=== PATIENT | female | born 1965 | race Caucasian/White ===

== ENCOUNTER → 2016-04-19 | Outpatient (CLI) | payer OTHER ==
[2016-04-19 13:02] LABS: ALBUMIN 4.3 g/dL (3.5-5.0); BILIRUBIN,TOTAL 0.6 mg/dL (0.2-1.3)
== END ==
LOC: OD 11:17
PROVIDERS: ATTEND Radiology Radiation Oncology
DX: C50.211 Malignant neoplasm of upper-inner quadrant of right female breast (principal); Z17.1 Estrogen receptor negative status [ER-]
CPT/HCPCS: 36415; 80076

== ENCOUNTER → 2016-06-25 | Outpatient (CLI) | payer OTHER | LOC: WI 11:03 | PROVIDERS: ATTEND Radiology Radiation Oncology | DX: C50.211 Malignant neoplasm of upper-inner quadrant of right female breast (principal); Z17.1 Estrogen receptor negative status [ER-] | CPT/HCPCS: G0279; G0204; 77062; 77066 ==

== ENCOUNTER 2016-08-03 15:30 | Observation (INO) | payer OTHER ==
[2016-08-03] MEDS ORDERED: METOCLOPRAMIDE HCL ORAL SOLN 10 MG/10 ML UDCUP PO ONE (17:19)
[2016-08-03] MEDS ORDERED: MAG HYDROX/AL HYDROX/SIMETH SUSP 30 ML UDCUP PO ONE (17:19)
[2016-08-03] MEDS ORDERED: LIDOCAINE 2% VISCOUS SOLN 20 ML UDCUP PO ONE (17:19)
--- NOTE | 2016-08-03 17:19 | ER Document Report ---
ED Medical Screen (RME) - General Chief Complaint: Dizziness Stated Complaint: FALL,HEAD PAIN Time Seen by Provider: 08/03/16 17:07 Mode of Arrival: Ambulatory Information source: Patient Notes: 52-year-old female with a history of breast cancer status post right mastectomy , radiation therapy and chemotherapy. The patient also has a history of migraines and elevated LFTs secondary to the chemotherapy. Patient states she recently traveled by plane to and back from [place]. She returned yesterday morning. Yesterday in the afternoon she was ambulating to the kitchen and she had an unheralded syncopal episode. Patient states she did hit her head and had some pain on the side of the neck and the back of the head. She reports that she had a second episode shortly thereafter. She reports that her states that her "heart rate was crazy fast" at the time. She presents with a headache after the event. TRAVEL OUTSIDE OF THE [place] IN LAST 30 DAYS: No - Related Data Allergies/Adverse Reactions: acetaminophen [From Percocet] Allergy (Verified 08/03/16 17:00) breathing difficulty hydrocodone [From Vicodin] Allergy (Verified 08/03/16 17:00) breathing difficulty oxycodone [From Percocet] Allergy (Verified 08/03/16 17:00) breathing difficulty Past Medical History - Social History Family history: CAD, CVA, DM, Hyperlipidemia, Hypertension, Malignancy Pulmonary Medical History: Reports: Hx Bronchitis Neurological Medical History: Reports: Hx Migraine Renal/ Medical History: Reports: Hx Ovarian Cysts. Denies: Hx Peritoneal Dialysis GI Medical History: Reports: Hx Irritable Bowel Musculoskeltal Medical History: Reports Hx Musculoskeletal Deformity, Reports Hx Musculoskeletal Trauma Psychiatric Medical History: Reports: Hx Anxiety Past Surgical History: Reports: Hx Appendectomy, Hx Cholecystectomy, Hx Hysterectomy, Hx Orthopedic Surgery - back, Hx Tubal Ligation, Hx Urinary Tract Surgery - bladder surger - Immunizations Immunizations up to date: Yes Hx Diphtheria, Pertussis, Tetanus Vaccination: Yes Physical Exam - Vital signs Vitals: Temp Pulse Resp BP Pulse Ox 98.7 F 97 16 136/82 H 98 08/03/16 15:45 08/03/16 15:45 08/03/16 15:45 08/03/16 15:45 08/03/16 15:45 Course - Vital Signs Vital signs: Temp Pulse Resp BP Pulse Ox 98.7 F 97 16 136/82 H 98 08/03/16 15:45 08/03/16 15:45 08/03/16 15:45 08/03/16 15:45 08/03/16 15:45
[2016-08-03 17:52] LABS: ABSOLUTE BASOPHILS # (AUTO) 0.1 10^3/uL (0.0-0.2); ABSOLUTE EOSINOPHILS # (AUTO) 0.3 10^3/uL (0.0-0.6); ABSOLUTE LYMPHOCYTES (AUTO) 2.3 10^3/uL (0.5-4.7); ABSOLUTE MONOCYTES (AUTO) 0.5 10^3/uL (0.1-1.4); ABSOLUTE NEUT (AUTO) 6.3 10^3/uL (1.7-8.2); BASOPHILS % (AUTO) 1.1 % (0-2); HEMATOCRIT 46.8 % (36.0-47.0); HEMOGLOBIN 15.6 g/dL (12.0-15.5); LYMPHOCYTES % (AUTO) 23.9 % (13-45); MEAN CORPUSCULAR HEMOGLOBIN 30.9 pg (27.0-33.4); MEAN CORPUSCULAR HGB CONC 33.4 g/dL (32.0-36.0); MEAN CORPUSCULAR VOLUME 92 fl (80-97); RED BLOOD COUNT 5.06 10^6/uL (3.72-5.28); RED CELL DISTRIBUTION WIDTH 13.2 % (11.5-14.0); WHITE BLOOD COUNT 9.4 10^3/uL (4.0-10.5)
[2016-08-03 17:58] LABS: PROTHROMBIN TIME 13.4 SEC (11.4-15.4)
[2016-08-03] MEDS ORDERED: ONDANSETRON 4 MG TAB.RAPDIS PO ONE (18:00)
[2016-08-03 18:14] LABS: ALANINE AMINOTRANSFERASE 31 U/L (9-52); ALBUMIN 4.6 g/dL (3.5-5.0); ALKALINE PHOSPHATASE 107 U/L (38-126); ANION GAP 14 (5-19); ASPARTATE AMINO TRANSFERASE 32 U/L (14-36); BILIRUBIN,DIRECT 0.4 mg/dL (0.0-0.4); BILIRUBIN,TOTAL 0.8 mg/dL (0.2-1.3); BLOOD UREA NITROGEN 8 mg/dL (7-20); CALCIUM 10.4 mg/dL (8.4-10.2); CARBON DIOXIDE 29 mmol/L (22-30); CHLORIDE 103 mmol/L (98-107); CREATINE KINASE 150 U/L (30-135); CREATININE RESULT 0.79 mg/dL (0.52-1.25); GLUCOSE 95 mg/dL (75-110); POTASSIUM 3.4 mmol/L (3.6-5.0); SODIUM 145.6 mmol/L (137-145)
[2016-08-03 18:25] LABS: CREATINE KINASE MB 0.77 ng/mL (<4.55)
[2016-08-03 18:27] LABS: TROPONIN I < 0.012 ng/mL
[2016-08-03] MEDS ORDERED: NORMAL SALINE 1000 ML 1,000 ML IV ONE ×2 (20:03→21:09)
--- NOTE | 2016-08-03 20:07 | ER Document Report ---
ED General - General Chief Complaint: Dizziness Stated Complaint: FALL,HEAD PAIN Time Seen by Provider: 08/03/16 17:07 Mode of Arrival: Ambulatory Notes: Patient is a 50-year-old female with past history of breast cancer status post right mastectomy currently on oral chemotherapy only who presents after having 2 episodes of syncope. Patient states that last evening she was in the kitchen and without any additional preceding symptoms she had a syncopal event. States that she fell down and hit her head and neck. States her got her up and sat her on the couch where again apparently she syncopized without any preceding symptoms. She has not had any additional syncopal episodes since that time. She presents with concerns of a constant, throbbing, aching pain to her left posterior scalp and neck. Nothing improves or worsens or symptoms. She denies any prior history of syncope without prodromal symptoms. No history of DVT or pulmonary embolus. She denies any chest pain or shortness of breath. TRAVEL OUTSIDE OF THE [place] IN LAST 30 DAYS: No - Related Data Allergies/Adverse Reactions: acetaminophen [From Percocet] Allergy (Verified 08/03/16 17:00) breathing difficulty hydrocodone [From Vicodin] Allergy (Verified 08/03/16 17:00) breathing difficulty oxycodone [From Percocet] Allergy (Verified 08/03/16 17:00) breathing difficulty Past Medical History - General Information source: Patient - Social History Smoking Status: Current Every Day Smoker Chew tobacco use (# tins/day): No Frequency of alcohol use: None Drug Abuse: None Lives with: Spouse/Significant other Family History: Reviewed & Not Pertinent Patient has suicidal ideation: No Patient has homicidal ideation: No Pulmonary Medical History: Reports: Hx Bronchitis Neurological Medical History: Reports: Hx Migraine Renal/ Medical History: Reports: Hx Ovarian Cysts. Denies: Hx Peritoneal Dialysis GI Medical History: Reports: Hx Irritable Bowel Musculoskeltal Medical History: Reports Hx Musculoskeletal Deformity, Reports Hx Musculoskeletal Trauma Psychiatric Medical History: Reports: Hx Anxiety Past Surgical History: Reports: Hx Appendectomy, Hx Cholecystectomy, Hx Hysterectomy, Hx Orthopedic Surgery - back, Hx Tubal Ligation, Hx Urinary Tract Surgery - bladder surger - Immunizations Immunizations up to date: Yes Hx Diphtheria, Pertussis, Tetanus Vaccination: Yes Review of Systems - Review of Systems Notes: Constitutional: Negative for fever. HENT: Negative for sore throat. Eyes: Negative for visual changes. Cardiovascular: Negative for chest pain. Respiratory: Negative for shortness of breath. Gastrointestinal: Negative for abdominal pain, vomiting or diarrhea. Genitourinary: Negative for dysuria. Musculoskeletal: Negative for back pain. Skin: Negative for rash. Neurological: Positive for headache, negative for weakness or numbness 10 point ROS negative except as marked above and in HPI. Physical Exam - Vital signs Vitals: Temp Pulse Resp BP Pulse Ox 98.7 F 97 16 136/82 H 98 08/03/16 15:45 08/03/16 15:45 08/03/16 15:45 08/03/16 15:45 08/03/16 15:45 Interpretation: Normal Notes: PHYSICAL EXAMINATION: GENERAL: Well-appearing, well-nourished and in no acute distress. HEAD: Atraumatic, normocephalic. EYES: Pupils equal round and reactive to light, extraocular movements intact, sclera anicteric, conjunctiva are normal. ENT: nares patent, oropharynx clear without exudates. Moist mucous membranes. NECK: Normal range of motion, supple without lymphadenopathy LUNGS: Breath sounds clear to auscultation bilaterally and equal. No wheezes rales or rhonchi. HEART: Regular rate and rhythm without murmurs ABDOMEN: Soft, nontender, normoactive bowel sounds. No guarding, no rebound. No masses appreciated. EXTREMITIES: Normal range of motion, no pitting or edema. No cyanosis. NEUROLOGICAL: No focal neurological deficits. Moves all extremities spontaneously and on command. PSYCH: Normal mood, normal affect. SKIN: Warm, Dry, normal turgor, no rashes or lesions noted. Course - Re-evaluation Re-evalutation: 08/03/16 20:04 Patient is a 50-year-old female with past medical history of breast cancer status post mastectomy who presents after 2 syncopal episodes without preceding symptoms yesterday. She presents with an ongoing headache since that time after striking her head during the first episode of syncope. Exact etiology of patient's syncope is unclear although absence of preceding symptoms is somewhat worrisome for a tachydysrhythmia. Patient normotensive, alert, without focal neurologic deficits at time of arrival. Denies syncope was during exertion. No preceding symptoms of palpitations, chest pain, or shortness of breath. Patient asymptomatic at time of arrival. EKG is without evidence of HCOM, right heart strain, ST changes to suggest ischemia, prolong QTc, delta wave, epsilon wave, or Brugada syndrome. Patient denies any family history of sudden cardiac , personal history of of structural heart disease. Patient denies any symptoms to suggest an acute PE, GA, TAD, SAH, seizure, or acute GI bleed as the etiology of their syncope today. On exam, no murmurs to suggest critical aortic stenosis as possible etiology. A CT the head and cervical spine were obtained in triage due to her hitting her head and neck during her first syncopal episode yesterday and noted to be normal. Her labs are otherwise unremarkable. I did discuss with this patient admission to the hospital given the somewhat concerning nature of her episode of syncope. We discussed that she would be admitted for telemetry monitoring and consideration of cardiac echocardiogram and possible stress testing. Alternative of discharge home with an outpatient echocardiogram and stress test was also discussed with the patient the risks and benefits of each of these approaches were discussed at length and patient states she would like to speak with her prior to making a decision about being admitted to the hospital. She has capacity to make her decision and has verbalized clear understanding of the risks and benefits of each approach. 08/03/16 21:04 Patient is agreed to admission at this time. She remains asymptomatic. I discussed with Dr. Ballesteros will admit the patient - Vital Signs Vital signs: Temp Pulse Resp BP Pulse Ox 98.7 F 97 16 98/71 L 96 08/03/16 15:45 08/03/16 15:45 08/03/16 15:45 08/03/16 23:00 08/03/16 23:01 - Laboratory Result Diagrams: 08/03/16 17:40 08/03/16 17:40 Laboratory results interpreted by me: 08/03/16 08/03/16 08/03/16 17:40 17:40 17:40 Hgb 15.6 H D-Dimer 0.58 H Sodium 145.6 H Potassium 3.4 L Calcium 10.4 H Creatine Kinase 150 H - Diagnostic Test Radiology reviewed: Reports reviewed - EKG Interpretation by Me Additional EKG results interpreted by me: 08/03/16 20:06 Normal sinus rhythm. Rate 77. No ST elevations or depressions. QTC is 426 Discharge - Discharge Clinical Impression: Syncope Qualifiers: Syncope type: unspecified Qualified Code(s): R55 - Syncope and collapse Admitting Provider: [facility] Admitted: Telemetry
[2016-08-03] MEDS ORDERED: MAGNESIUM HYDROXIDE SUSP 30 ML UDCUP PO PRN (21:06)
[2016-08-03] MEDS ORDERED: ACETAMINOPHEN 325 MG TABLET PO PRN (21:06)
[2016-08-03] MEDS ORDERED: KETOROLAC TROMETHAMINE INJ/PF 30 MG/1 ML SDV IV ONE (21:09)
--- NOTE | 2016-08-03 22:03 | EKG REPORT ---
SEVERITY:- NORMAL ECG - SINUS RHYTHM : Confirmed by: Suzi Sanchez 03-Aug-2016 22:01:49
[2016-08-03] MEDS: HEPARIN SOD (PORCINE) 5,000 UNIT/ML 1 ML SYRINGE SUBCUT SCH (22:43)
[2016-08-04] MEDS ORDERED: ALPRAZOLAM PO PRN (00:12)
[2016-08-04] MEDS ORDERED: HYDROMORPHONE HCL 2 MG TABLET PO PRN (00:13)
[2016-08-04 03:51] LABS: ANION GAP 5 (5-19); BLOOD UREA NITROGEN 12 mg/dL (7-20); CALCIUM 9.3 mg/dL (8.4-10.2); CARBON DIOXIDE 30 mmol/L (22-30); CHLORIDE 107 mmol/L (98-107); CREATINE KINASE 105 U/L (30-135); CREATININE RESULT 1.02 mg/dL (0.52-1.25); GLUCOSE 93 mg/dL (75-110); POTASSIUM 3.2 mmol/L (3.6-5.0); SODIUM 141.8 mmol/L (137-145)
[2016-08-04 04:02] LABS: CREATINE KINASE MB 0.58 ng/mL (<4.55)
[2016-08-04 04:09] LABS: TROPONIN I < 0.012 ng/mL
[2016-08-04] MEDS: HEPARIN SOD (PORCINE) 5,000 UNIT/ML 1 ML SYRINGE SUBCUT SCH ×2 (06:38→13:19)
[2016-08-04] MEDS ORDERED: POTASSIUM CHLORIDE 10 MEQ TABLET.SA PO ONE ×2 (07:24→07:45)
[2016-08-04 08:37] LABS: HEMATOCRIT 40.5 % (36.0-47.0); HGB HCT DIFFERENCE -0.6; MEAN CORPUSCULAR HEMOGLOBIN 30.5 pg (27.0-33.4); MEAN CORPUSCULAR HGB CONC 32.9 g/dL (32.0-36.0); MEAN CORPUSCULAR VOLUME 93 fl (80-97); RED BLOOD COUNT 4.36 10^6/uL (3.72-5.28); RED CELL DISTRIBUTION WIDTH 13.2 % (11.5-14.0); WHITE BLOOD COUNT 8.2 10^3/uL (4.0-10.5)
[2016-08-04 09:21] LABS: HEMOGLOBIN 13.3 g/dL (12.0-15.5)
[2016-08-04 09:24] LABS: BAND NEUTROPHILS % (MANUAL) 1 % (3-5); BASOPHILS % (MANUAL) 2 % (0-2); EOSINOPHILS % (MANUAL) 3 % (0-6); LYMPHOCYTES % (MANUAL) 33 % (13-45); PLATELET CLUMPS PRESENT; RBC MORPHOLOGY COMMENT NORMO-CYTIC/CHROMIC; TOTAL CELLS COUNTED 100; TOXIC GRANULATION SLIGHT
[2016-08-04] MEDS ORDERED: DOCUSATE SODIUM 100 MG CAPSULE PO SCH (10:00)
--- NOTE | 2016-08-04 10:26 | PDOC H&P ---
History of Present Illness Admission Date/PCP: 08/03/16 21:06 MARLA SQUIRES MD Patient complains of: Syncope History of Present Illness: KIARA KHAN is a 50 year old female with a past medical history of chronic pain, migraine, irritable bowel syndrome, breast cancer, tobacco, anxiety, depression and ADHD. She been in her usual state of health until approximately 24 hours prior to presentation sustaining an unwitnessed fall for which she does not recollect prior symptoms. She denies previous episode, palpitations, chest pain, limb injuries or incontinence. She subsequently complained of left- sided headache which is dull in nature. She currently complains of pain all over, nausea and constipation. She Denies shortness of breath. In the emergency room she presents with normal-tension but is currently hypotensive without tachycardia, she asks to take her home medications from her purse of Dilaudid and Xanax. Workup was otherwise unremarkable she's referred to the hospitalist for evaluation. Past Medical History Pulmonary Medical History: Reports: Bronchitis Neurological Medical History: Reports: Migraine GI Medical History: Reports: Other - Constipation to predominant irritable bowel Musculoskeltal Medical History: Reports: Other - Narcotic dependent chronic pain Psychiatric Medical History: Reports: Attention Deficit Hyperactivity Disorder, Depression, General Anxiety Disorder, Tobacco Dependency Past Surgical History Past Surgical History: Reports: Appendectomy, Cholecystectomy, Hysterectomy, Orthopedic Surgery - back, Tubal Ligation Social History Information Source: Patient Lives with: Family Smoking Status: Current Every Day Smoker Cigarettes Packs Per Day: 1 Frequency of Alcohol Use: None - Advance Directive Resuscitation Status: Full Code Family History Family History: CAD, Hypertension Parental Family History Reviewed: Yes Children Family History Reviewed: Yes Sibling(s) Family History Reviewed.: Yes Medication/Allergy Home Medications: Alprazolam [Xanax] 1 mg PO TIDP PRN 08/04/16 Docusate Sodium [Colace 100 mg Capsule] 100 mg PO BID #60 capsule 08/04/16 Eletriptan HBr [Relpax] 40 mg PO ONCE PRN 08/04/16 Hydromorphone HCl [Dilaudid 2 mg Tablet] 2 mg PO QID 08/04/16 Letrozole [Femara 2.5 mg Tablet] 2.5 mg PO DAILY 08/04/16 Lidocaine [Lidoderm 5% (700 mg) Transdermal Patch] 1 patch TOP Q12 PRN 08/04/16 Sennosides [Senna Laxative] 2 tab PO QHS #60 tablet 08/04/16 Allergies/Adverse Reactions: acetaminophen [From Percocet] Allergy (Verified 08/03/16 17:00) breathing difficulty hydrocodone [From Vicodin] Allergy (Verified 08/03/16 17:00) breathing difficulty oxycodone [From Percocet] Allergy (Verified 08/03/16 17:00) breathing difficulty Review of Systems ROS unobtainable: Other - History felt unreliable as she answers vaguely but affirmative to all questions with poor eye contact, difficulty with concentration and slurred speech. Physical Exam Vital Signs: Temp Pulse Resp BP Pulse Ox 98.7 F 97 16 98/71 L 96 08/03/16 15:45 08/03/16 15:45 08/03/16 15:45 08/03/16 23:00 08/03/16 23:01 General appearance: PRESENT: no acute distress, well-developed, well-nourished Head exam: PRESENT: atraumatic, normocephalic Eye exam: PRESENT: conjunctiva pink, EOMI, PERRLA. ABSENT: scleral icterus Ear exam: PRESENT: normal external ear exam Mouth exam: PRESENT: moist, tongue midline Neck exam: ABSENT: carotid bruit, JVD, lymphadenopathy, thyromegaly Respiratory exam: PRESENT: clear to auscultation liss. ABSENT: rales, rhonchi, wheezes Cardiovascular exam: PRESENT: RRR. ABSENT: diastolic murmur, rubs, systolic murmur Pulses: PRESENT: normal dorsalis pedis pul Vascular exam: PRESENT: normal capillary refill GI/Abdominal exam: PRESENT: normal bowel sounds, soft. ABSENT: distended, guarding, mass, organolmegaly, rebound, tenderness Rectal exam: PRESENT: deferred Extremities exam: PRESENT: full ROM. ABSENT: calf tenderness, clubbing, pedal edema Neurological exam: PRESENT: alert, awake, oriented to person, oriented to place , oriented to time, oriented to situation, CN II-XII grossly intact. ABSENT: motor sensory deficit Psychiatric exam: PRESENT: appropriate affect, normal mood. ABSENT: homicidal ideation, suicidal ideation Skin exam: PRESENT: dry, intact, warm. ABSENT: cyanosis, rash Results Laboratory Results: 0508/03/16 08/03/16 21:25 21:25 21:25 Creatine Kinase 135 CK-MB (CK-2) 0.70 Troponin I Cancelled < 0.012 Impressions: Cervical Spine CT 08/03/16 17:17 IMPRESSION: Degenerative changes without evidence for fracture Head CT 08/03/16 17:17 IMPRESSION: NORMAL BRAIN CT WITHOUT CONTRAST. Assessment & Plan - Diagnosis (1) Syncope Qualifiers: Syncope type: unspecified Qualified Code(s): R55 - Syncope and collapse Is this a current diagnosis for this admission?: YesPlan: Complicated by dehydration, benzodiazepine and narcotics. Patient initially orthostatic improved with IV fluids and reduction of Xanax and Dilaudid. Continue cardiac monitoring (2) Breast cancer Plan: Increased risk for pulmonary emboli, given his history and tobacco will obtain d -dimer and consider CTA chest (3) Chronic pain Is this a current diagnosis for this admission?: YesPlan: Complicating balance and likely contributing factor to both complaint of constipation and dizziness. Dose reduction of Dilaudid as inpatient with follow -up with pain management. (4) Anxiety Is this a current diagnosis for this admission?: YesPlan: Compcare in presentation with dizziness suggest reduction in Xanax dose and frequency with outpatient follow-up with mental health (5) Orthostasis Is this a current diagnosis for this admission?: YesPlan: IV fluid challenge orthostatic blood pressure evaluation every 4 hours, reduction and Dilaudid and Xanax dosing - Time Time Spent: 30 to 50 Minutes
[2016-08-04 10:44] LABS: ANION GAP 9 (5-19); BLOOD UREA NITROGEN 15 mg/dL (7-20); CALCIUM 9.7 mg/dL (8.4-10.2); CARBON DIOXIDE 26 mmol/L (22-30); CHLORIDE 106 mmol/L (98-107); CREATINE KINASE 105 U/L (30-135); CREATININE RESULT 0.86 mg/dL (0.52-1.25); GLUCOSE 109 mg/dL (75-110); POTASSIUM 3.6 mmol/L (3.6-5.0); SODIUM 140.8 mmol/L (137-145)
[2016-08-04 10:56] LABS: CREATINE KINASE MB 0.66 ng/mL (<4.55)
[2016-08-04] MEDS ORDERED: ELETRIPTAN HBR 40 MG PO PRN (10:59)
[2016-08-04] MEDS ORDERED: LIDOCAINE 5% (700 MG) TRANSDERMAL ADH..PATCH TOP PRN (10:59)
[2016-08-04] MEDS ORDERED: NORMAL SALINE 1000 ML 2,000 ML IV ONE (10:59)
[2016-08-04 11:00] LABS: TROPONIN I < 0.012 ng/mL
[2016-08-04] MEDS ORDERED: ALPRAZOLAM 0.5 MG TABLET PO PRN (11:19)
[2016-08-04] MEDS ORDERED: LETROZOLE 2.5 MG TABLET PO ONE (12:00)
[2016-08-04] MEDS ORDERED: HYDROMORPHONE HCL 2 MG TABLET PO SCH (12:00)
[2016-08-04 12:20] VITALS: BP 136/57
--- NOTE | 2016-08-04 18:32 | PDOC DISCHARGE SUMMARY ---
General - Admit/Disc Date/PCP Admission Date/Primary Care Provider: 08/03/16 21:06 MARLA SQUIRES MD Discharge Date: 08/04/16 - Discharge Diagnosis (1) Breast cancer Is this a current diagnosis for this admission?: Yes (2) Chronic pain Is this a current diagnosis for this admission?: Yes (3) Anxiety Is this a current diagnosis for this admission?: Yes (4) Orthostasis Is this a current diagnosis for this admission?: Yes (5) Syncope Is this a current diagnosis for this admission?: Yes (6) Tobacco abuse Is this a current diagnosis for this admission?: Yes - Additional Information Resuscitation Status: Full Code Discharge Diet: Regular, Other (Comments) - increase fiber and water Discharge Activity: Activity As Tolerated Home Medications: Alprazolam [Xanax] 1 mg PO TIDP PRN 08/04/16 Docusate Sodium [Colace 100 mg Capsule] 100 mg PO BID #60 capsule 08/04/16 Eletriptan HBr [Relpax] 40 mg PO ONCE PRN 08/04/16 Hydromorphone HCl [Dilaudid 2 mg Tablet] 2 mg PO QID 08/04/16 Letrozole [Femara 2.5 mg Tablet] 2.5 mg PO DAILY 08/04/16 Lidocaine [Lidoderm 5% (700 mg) Transdermal Patch] 1 patch TOP Q12 PRN 08/04/16 Sennosides [Senna Laxative] 2 tab PO QHS #60 tablet 08/04/16 History of Present Illness History of Present Illness: KIARA KHAN is a 50 year old female with a past medical history of chronic pain, migraine, irritable bowel syndrome, breast cancer, tobacco, anxiety, depression and ADHD. She been in her usual state of health until approximately 24 hours prior to presentation sustaining an unwitnessed fall for which she does not recollect prior symptoms. She denies previous episode, palpitations, chest pain, limb injuries or incontinence. She subsequently complained of left- sided headache which is dull in nature. She currently complains of pain all over, nausea and constipation. She Denies shortness of breath. In the emergency room she presents with normal-tension but is currently hypotensive without tachycardia, she asks to take her home medications from her purse of Dilaudid and Xanax. Workup was otherwise unremarkable she's referred to the hospitalist for evaluation. Hospital Course Hospital Course: Patient was found to be orthostatic. Upon review of patient discussion with her she had done some traveling and a VQ scan was obtained and this was low probability for PE. At this time I have advised patient that her workup is best completed as an outpatient with presentation to cardiology for Holter monitor as well as echocardiogram and stress test. Referral has been made for her. Patient was given several liters of IV fluid with improvement of her symptomatology and discharged in stable condition. She is advised to follow with her primary care physician. Physical Exam Vital Signs: Temp Pulse Resp BP Pulse Ox 98.0 F 76 18 136/57 H 96 08/04/16 15:43 08/04/16 15:43 08/04/16 15:43 08/04/16 15:43 08/04/16 15:43 Intake & Output 08/03/16 08/04/16 08/05/16 06:59 06:59 06:59 Intake Total 180 Output Total 0 Balance 180 Weight 70.5 kg Exam: General: Awake alert and oriented x3, no acute respiratory distress HEENT: AT/NC, PERRL, EOMI, oropharynx is moist, pink, no scleral icterus, no conjunctival injection Neck: No JVD, trachea midline Chest: Clear to auscultation bilaterally, no wheezes rhonchi or rales CV: Regular rate and rhythm, normal S1 and S2, no murmur, rub, or gallop Abdomen: Soft, nontender to palpation, nondistended, active bowel sounds; no rebound, rigidity, or guarding Extremities: No cyanosis, clubbing or edema Neuro: Cranial nerves II through XII are grossly intact without focal deficits; awake alert and oriented x3 Psych: Normal mood and affect Results Laboratory Results: 08/04/16 03:19 08/04/16 09:42 08/04/16 08/04/16 08/04/16 03:19 03:19 03:19 WBC 8.2 RBC 4.36 Hgb 13.3 D Hct 40.5 MCV 93 MCH 30.5 MCHC 32.9 RDW 13.2 Plt Count 166 Seg Neutrophils % Not Reportable Lymphocytes % Not Reportable Monocytes % Not Reportable Eosinophils % Not Reportable Basophils % Not Reportable Absolute Neutrophils Not Reportable Absolute Lymphocytes Not Reportable Absolute Monocytes Not Reportable Absolute Eosinophils Not Reportable Absolute Basophils Not Reportable Sodium 141.8 Potassium 3.2 L Chloride 107 Carbon Dioxide 30 Anion Gap 5 BUN 12 Creatinine 1.02 Est GFR ( Amer) > 60 Est GFR (Non-Af Amer) 58 L Glucose 93 Calcium 9.3 Magnesium 1.9 08/04/16 08/04/16 07:47 09:42 WBC RBC Hgb Hct MCV MCH MCHC RDW Plt Count Seg Neutrophils % Lymphocytes % Monocytes % Eosinophils % Basophils % Absolute Neutrophils Absolute Lymphocytes Absolute Monocytes Absolute Eosinophils Absolute Basophils Sodium 140.8 Potassium 3.6 Chloride 106 Carbon Dioxide 26 Anion Gap 9 BUN 15 Creatinine 0.86 Est GFR ( Amer) > 60 Est GFR (Non-Af Amer) > 60 Glucose 109 Calcium 9.7 Magnesium 1.9 08/03/16 08/03/16 08/03/16 21:25 21:25 21:25 Creatine Kinase 135 CK-MB (CK-2) 0.70 Troponin I Cancelled < 0.012 08/04/16 08/04/16 08/04/16 03:19 03:19 09:42 Creatine Kinase 105 105 CK-MB (CK-2) 0.58 Troponin I < 0.012 08/04/16 09:42 Creatine Kinase CK-MB (CK-2) 0.66 Troponin I < 0.012 Impressions: Cervical Spine CT 08/03/16 17:17 IMPRESSION: Degenerative changes without evidence for fracture Head CT 08/03/16 17:17 IMPRESSION: NORMAL BRAIN CT WITHOUT CONTRAST. Chest X-Ray 08/04/16 00:00 IMPRESSION: NO SIGNIFICANT RADIOGRAPHIC FINDING IN THE CHEST. Lung Scan-VQ AL 08/04/16 00:00 IMPRESSION: NORMAL VENTILATION-PERFUSION LUNG SCAN. NEGATIVE FOR PULMONARY EMBOLI. Qualifiers PATEINT BEING DISCHARGED WITH ANY OF THE FOLLOWING DIAGNOSIS?: No Plan Time Spent: Less than 30 Minutes
[2016-08-05] MEDS ORDERED: LETROZOLE 2.5 MG TABLET PO SCH (10:00)
== END 2016-08-04 18:53 | disposition home or self-care (01) ==
LOC: ER 15:30 → EH 21:06 → UNDOADMOB 21:28 → EH 21:28 → 4N 23:55
PROVIDERS: ADMIT Internal Medicine; ATTEND Internal Medicine
DX: I95.1 Orthostatic hypotension (principal); C50.919 Malignant neoplasm of unspecified site of unspecified female breast; G89.29 Other chronic pain; F41.9 Anxiety disorder, unspecified; K58.1 Irritable bowel syndrome with constipation; R51 Headache; M54.2 Cervicalgia; W18.00XA Striking against unspecified object with subsequent fall, initial encounter; Y92.000 Kitchen of unspecified non-institutional (private) residence as the place of occurrence of the external cause; R11.0 Nausea; F17.200 Nicotine dependence, unspecified, uncomplicated; Z79.899 Other long term (current) drug therapy; Z90.11 Acquired absence of right breast and nipple; Z98.51 Tubal ligation status; Z90.49 Acquired absence of other specified parts of digestive tract; Z90.710 Acquired absence of both cervix and uterus; Z92.3 Personal history of irradiation; Z82.49 Family history of ischemic heart disease and other diseases of the circulatory system; Z80.9 Family history of malignant neoplasm, unspecified; Z98.890 Other specified postprocedural states
CPT/HCPCS: 93005; 99285; 96372; 96361; 96374; 36415 ×2; 82553 ×2; 82550 ×2; 83735; 84443; 85025 ×2; 85610; 80048; 80053; 84484 ×2; 85379; 71020; 78582; 70450; 72125; 93010; G0378 ×2; A9540; A9567; J1644; S0119; J1885; J7030 ×2; Q9969

== ENCOUNTER → 2017-02-09 | Outpatient (CLI) | payer OTHER ==
[2017-02-09 16:32] LABS: ALANINE AMINOTRANSFERASE 34 U/L (9-52); ALBUMIN 4.4 g/dL (3.5-5.0); ALKALINE PHOSPHATASE 107 U/L (38-126); ASPARTATE AMINO TRANSFERASE 20 U/L (14-36); BILIRUBIN,DIRECT 0.3 mg/dL (0.0-0.4); BILIRUBIN,TOTAL 0.5 mg/dL (0.2-1.3)
== END ==
LOC: OD 15:37
PROVIDERS: ATTEND Radiology Radiation Oncology
DX: Z79.899 Other long term (current) drug therapy (principal)
CPT/HCPCS: 36415; 80076

== ENCOUNTER → 2017-08-10 | Outpatient (CLI) | payer OTHER ==
[2017-08-10 17:15] LABS: ALANINE AMINOTRANSFERASE 39 U/L (9-52); ALBUMIN 4.2 g/dL (3.5-5.0); ALKALINE PHOSPHATASE 128 U/L (38-126); ASPARTATE AMINO TRANSFERASE 24 U/L (14-36); BILIRUBIN,DIRECT 0.4 mg/dL (0.0-0.4); BILIRUBIN,TOTAL 0.5 mg/dL (0.2-1.3); TOTAL PROTEIN 6.8 g/dL (6.3-8.2)
== END ==
LOC: OD 15:17
PROVIDERS: ATTEND Radiology Radiation Oncology
DX: Z79.899 Other long term (current) drug therapy (principal)
CPT/HCPCS: 36415; 80076

== ENCOUNTER 2018-01-01 17:12 | Emergency (ER) | payer OTHER ==
[2018-01-01 17:21] VITALS: BP 134/86
[2018-01-01] MEDS ORDERED: CEPHALEXIN 500 MG CAPSULE PO ONE (17:48)
--- NOTE | 2018-01-01 17:54 | ER Document Report ---
HPI - HPI Patient complains to provider of: Skin laceration Onset: Last week Onset/Duration: Persistent Quality of pain: Achy Pain Level: 3 Context: Patient presents complaining of pruritic skin rash to the hands and feet. Patient has seen her primary doctor for the same issue and her provider chemically froze skin lesion to her right foot. Patient complains of drainage to the wound to the plantar surface of her right foot. Patient denies any fever. Associated Symptoms: Other - Right foot wound drainage, pruritic skin rash. denies: Fever Exacerbated by: Denies Relieved by: Denies Similar symptoms previously: No Recently seen / treated by doctor: Yes - ROS ROS below otherwise negative: Yes Systems Reviewed and Negative: Yes All other systems reviewed and negative - CONSTITUTIONAL Constitutional: DENIES: Fever, Chills - GASTROINTESTINAL Gastrointestinal: DENIES: Abdominal Pain, Black / Bloody Stools - URINARY Urinary: DENIES: Dysuria, Urgency, Frequency - REPRODUCTIVE Reproductive: DENIES: : - MUSCULOSKELETAL Musculoskeletal: REPORTS: Extremity pain - feet/hands - DERM Skin Color: Erythema Skin Problems: Rash, Blister, Pustule Past Medical History - General Information source: Patient - Social History Smoking Status: Current Every Day Smoker Smoking Education Provided: Yes Frequency of alcohol use: None Drug Abuse: None Occupation: None Lives with: Family Family History: CAD, Hypertension Patient has suicidal ideation: No Patient has homicidal ideation: No Pulmonary Medical History: Reports: Hx Bronchitis Neurological Medical History: Reports: Hx Migraine Renal/ Medical History: Reports: Hx Ovarian Cysts. Denies: Hx Peritoneal Dialysis GI Medical History: Reports: Hx Irritable Bowel Musculoskeletal Medical History: Reports Hx Musculoskeletal Deformity, Reports Hx Musculoskeletal Trauma Psychiatric Medical History: Reports: Hx Anxiety, Hx Attention Deficit Hyperactivity Disorder, Hx Depression Past Surgical History: Reports: Hx Appendectomy, Hx Cholecystectomy, Hx Hysterectomy, Hx Orthopedic Surgery - back, Hx Tubal Ligation, Hx Urinary Tract Surgery - bladder surger - Immunizations Immunizations up to date: Yes Hx Diphtheria, Pertussis, Tetanus Vaccination: Yes Vertical Provider Document - CONSTITUTIONAL Agree With Documented VS: Yes Exam Limitations: No Limitations General Appearance: WD/WN, No Apparent Distress - INFECTION CONTROL TRAVEL OUTSIDE OF THE [place] IN LAST 30 DAYS: No - HEENT HEENT: Atraumatic - NECK Neck: Normal Inspection - RESPIRATORY Respiratory: Breath Sounds Normal, No Respiratory Distress - CARDIOVASCULAR Cardiovascular: Regular Rate, Regular Rhythm - MUSCULOSKELETAL/EXTREMETIES Musculoskeletal/Extremeties: DEANDRE SOLIMAN - NEURO Level of Consciousness: Awake, Alert, Appropriate Motor/Sensory: No Motor Deficit - DERM Integumentary: Warm, Dry, Rash - Patient with pruritic papular rash to palmar and lateral surface of hands, patient with papular lesions to plantar surface of foot and in between toes. Patient with crusted skin lesion to plantar surface of right midfoot area with mild surrounding erythema and fluid-filled lesions Course - Re-evaluation Re-evalutation: 01/01/18 17:50 Patient presents with what appears to be dyshidrotic eczema that has been chemically frozen and secondarily appears to be cellulitic to the right foot. - Vital Signs Vital signs: Temp Pulse Resp BP Pulse Ox 98.5 F 96 18 134/86 H 96 01/01/18 17:19 01/01/18 17:19 01/01/18 17:19 01/01/18 17:19 01/01/18 17:19 Discharge - Discharge Clinical Impression: Eczema, dyshidrotic, Impetigo Cellulitis Qualifiers: Site of cellulitis: extremity Site of cellulitis of extremity: lower extremity Laterality: right Qualified Code(s): L03.115 - Cellulitis of right lower limb Condition: Stable Disposition: HOME, SELF-CARE Instructions: Bactroban Ointment ([facility]), Cellulitis ([facility]), Cephalexin ([facility]), Impetigo ([facility]) Additional Instructions: Return immediately for any new or worsening symptoms Followup with your primary care provider, call tomorrow to make a followup appointment Keep skin moisturized with mild lotion such as Cetaphil, Aquaphor, Lubriderm or Vaseline Apply topical antibiotic ointment to open wound to foot. Apply steroid cream to rash to hands. Follow-up with dermatology for further evaluation. Call tomorrow for an appointment Prescriptions: Cephalexin Monohydrate [Keflex 500 mg Capsule] 500 mg PO Q6H 5 Days capsule Mupirocin [Bactroban 2% Ointment 22 gm] 1 applic TP TID #22 gm Triamcinolone Acetonide [Aristocort 0.1% Cream] 1 applic TP TID #60 gm Forms: Smoking Cessation Education Referrals: TAMI XIAO DO [ACTIVE STAFF] - Follow up as needed YANI CRABTREE DO [ACTIVE STAFF] - Follow up in 3-5 days
== END 2018-01-01 18:23 | disposition home or self-care (01) ==
LOC: ER 17:12
DX: L30.9 Dermatitis, unspecified (principal); L30.1 Dyshidrosis [pompholyx]; L01.00 Impetigo, unspecified; L03.115 Cellulitis of right lower limb; F17.200 Nicotine dependence, unspecified, uncomplicated; Z90.49 Acquired absence of other specified parts of digestive tract; Z90.710 Acquired absence of both cervix and uterus
CPT/HCPCS: 87070; 87075; 87077; 87186; 87205; 99283

== ENCOUNTER → 2018-03-23 | Outpatient (CLI) | payer OTHER ==
[2018-03-23 08:54] LABS: ABSOLUTE BASOPHILS # (AUTO) 0.1 10^3/uL (0.0-0.2); ABSOLUTE EOSINOPHILS # (AUTO) 0.4 10^3/uL (0.0-0.6); ABSOLUTE LYMPHOCYTES (AUTO) 2.7 10^3/uL (0.5-4.7); ABSOLUTE MONOCYTES (AUTO) 0.5 10^3/uL (0.1-1.4); ABSOLUTE NEUT (AUTO) 4.9 10^3/uL (1.7-8.2); BASOPHILS % (AUTO) 1.1 % (0-2); EOSINOPHILS % (AUTO) 4.2 % (0-6); HEMATOCRIT 42.7 % (36.0-47.0); HEMOGLOBIN 14.7 g/dL (12.0-15.5); LYMPHOCYTES % (AUTO) 31.4 % (13-45); MEAN CORPUSCULAR HEMOGLOBIN 30.5 pg (27.0-33.4); MEAN CORPUSCULAR HGB CONC 34.4 g/dL (32.0-36.0); MEAN CORPUSCULAR VOLUME 89 fl (80-97); MONOCYTES % (AUTO) 5.8 % (3-13); PLATELET COUNT 228 10^3/uL (150-450); RED BLOOD COUNT 4.82 10^6/uL (3.72-5.28); RED CELL DISTRIBUTION WIDTH 13.4 % (11.5-14.0); SEGMENTED NEUTROPHILS % (AUTO) 57.5 % (42-78); TOTAL CELLS COUNTED % (AUTO) 100 %; WHITE BLOOD COUNT 8.6 10^3/uL (4.0-10.5)
[2018-03-23 09:09] LABS: ALANINE AMINOTRANSFERASE 24 U/L (9-52); ALKALINE PHOSPHATASE 117 U/L (38-126); ASPARTATE AMINO TRANSFERASE 20 U/L (14-36); BILIRUBIN,DIRECT 0.3 mg/dL (0.0-0.4); BILIRUBIN,TOTAL 0.3 mg/dL (0.2-1.3); TOTAL PROTEIN 6.8 g/dL (6.3-8.2)
== END ==
LOC: OD 08:08
PROVIDERS: ATTEND Radiology Radiation Oncology
DX: C50.211 Malignant neoplasm of upper-inner quadrant of right female breast (principal); Z17.0 Estrogen receptor positive status [ER+]
CPT/HCPCS: 36415; 80076; 85025